=== PATIENT | male | born 1955 | race Caucasian/White ===

== ENCOUNTER 2020-06-01 | Observation (INO) | payer SELFPAY ==
[2020-05-31 21:27] LABS: HEMATOCRIT 45.6 % (39.0-50.0); IMMATURE GRANULOCYTES 0.8 % (0.0-5.0); MEAN CELL VOLUME 87.9 fL CALC (80.0-100.0); MEAN CORPUSCULAR HGB 30.8 pG CALC (26.0-32.0); MEAN CORPUSCULAR HGB CONC 35.1 g/dL CAL (32.0-36.0); NEUT# 9.79 thou/uL (1.82-7.42); RED BLOOD COUNT 5.19 mill/uL (4.70-6.10); RED CELL DISTRI WIDTH 13.4 % (11.5-15.5)
[2020-05-31 21:43] LABS: ALBUMIN 4.8 g/dL (3.2-5.0); ALKALINE PHOSPHATASE 77 u/l (38-126); AMYLASE 85 u/l (30-110); ANION GAP 15 (6-22 (CALC)); BILIRUBIN, TOTAL 0.7 mg/dL (0.0-1.4); BUN 12 mg/dL (8-23); BUN/CREATININE RATIO 16 (12-20 (CALC)); CARBON DIOXIDE 25 mmol/l (22-30); CHLORIDE 98 mmol/l (95-108); CREATININE 0.8 mg/dL (0.7-1.3); ETHYL ALCOHOL 50 mg/dl (0-30); GFR > 60 ML/MIN (>=60 (CALC)); GFR FOR AFR.AMER. > 60 ML/MIN (>=60 (CALC)); LIPASE 52 u/l (23-300); POTASSIUM 3.9 mmol/l (3.5-5.1); SGOT/AST 33 u/l (19-48); SODIUM 134 mmol/l (137-146); TOTAL PROTEIN 7.8 g/dL (6.3-8.2)
[2020-05-31 21:47] LABS: ACT PARTIAL THROMBO TIME 18.5 SECONDS (20.0-32.5); PROTHROMBIN TIME 10.4 SECONDS (9.0-12.5)
[2020-05-31 21:50] LABS: D-DIMER 0.17 mg/L (0.19-0.60)
[2020-05-31 21:54] LABS: MYOGLOBIN 189 ng/mL (0 - 121)
[2020-05-31 22:12] LABS: TSH, 3RD GENERATION 1.45 uIU/mL (0.47 - 4.68)
[2020-05-31 23:42] LABS: URINE BILIRUBIN - DIPSTICK NEGATIVE (NEGATIVE); URINE COLOR YELLOW; URINE GLUCOSE - DIPSTICK NEGATIVE (NEGATIVE); URINE KETONE 15 mg/dL (NEGATIVE); URINE LEUK ESTERASE NEGATIVE (NEGATIVE); URINE PROTEIN - DIPSTICK NEGATIVE (NEG-TRACE); URINE SPECIFIC GRAVITY 1.025; URINE UROBILINOGEN - DIPSTICK 0.2 E.U./dL (0.2)
[2020-05-31 23:44] LABS: URINE BLOOD DIPSTICK NEGATIVE (NEGATIVE); URINE NITRITE - DIPSTICK NEGATIVE (Negative)
[2020-06-01] VITALS (11 sets, daily range): BP systolic 117–158; BP diastolic 72–98
[~2020-06-01] MED LIST: BP MED PO; LEVOTHYROXIN150 MC1 PO
== END 2020-06-01 10:51 | disposition short-term general hospital (02) | DRG 282 ==
PROVIDERS: Family Medicine; ADMIT Internal Medicine
DX: I21.4 Non-ST elevation (NSTEMI) myocardial infarction (principal); R00.1 Bradycardia, unspecified; I10 Essential (primary) hypertension; E89.0 Postprocedural hypothyroidism; T46.5X6A Underdosing of other antihypertensive drugs, initial encounter; Z91.128 Patient's intentional underdosing of medication regimen for other reason; Z87.891 Personal history of nicotine dependence; Z72.89 Other problems related to lifestyle; Z20.822 Contact with and (suspected) exposure to COVID-19
CPT/HCPCS: G0378; J1650; J2060

== ENCOUNTER 2020-11-22 11:05 | Observation (INO) | payer BC ==
[~2020-11-22] VITALS: Ht 175.3 cm; Wt 97.0 kg
--- NOTE | 2020-11-22 11:05 | NUR ---
PATIENT TO ROOM VIA WHEELCHAIR AND PHYSICIAN NOTIFIED OF PATIENT STATUS
[2020-11-22 12:01] LABS: HEMATOCRIT 46.2 % (39.0-50.0); HEMOGLOBIN 15.9 g/dl (14.0-18.0); IMMATURE GRANULOCYTES 0.7 % (0.0-5.0); MEAN CELL VOLUME 89.4 fL CALC (80.0-100.0); MEAN CORPUSCULAR HGB 30.8 pG CALC (26.0-32.0); MEAN CORPUSCULAR HGB CONC 34.4 g/dL CAL (32.0-36.0); NEUT# 4.03 thou/uL (1.82-7.42); RED BLOOD COUNT 5.17 mill/uL (4.70-6.10); RED CELL DISTRI WIDTH 13.3 % (11.5-15.5)
[2020-11-22 12:09] LABS: ANION GAP 13 (6-22 (CALC)); BUN 11 mg/dL (8-23); BUN/CREATININE RATIO 15 (12-20 (CALC)); CARBON DIOXIDE 28 mmol/l (22-30); CHLORIDE 102 mmol/l (95-108); CREATININE 0.7 mg/dL (0.7-1.3); GFR > 60 ML/MIN (>=60 (CALC)); GFR FOR AFR.AMER. > 60 ML/MIN (>=60 (CALC)); POTASSIUM 4.2 mmol/l (3.5-5.1); SODIUM 138 mmol/l (137-146)
--- NOTE | 2020-11-22 12:18 | NUR ---
PATIENT LYING IN BED WITH SUPPORT PERSON AT BEDSIDE
[2020-11-22] MEDS ORDERED: LIPITOR80 M1 PO (12:48)
[2020-11-22] MEDS ORDERED: LISINOPRIL2.5 MG PO (12:48)
[2020-11-22] MEDS ORDERED: CLOPIDOGREL75 MG PO (12:48)
[2020-11-22] MEDS ORDERED: METOPROL TAR25 MG PO (12:48)
[2020-11-22] MEDS ORDERED: EUTHYROX150 MCG PO (12:49)
--- NOTE | 2020-11-22 12:59 | NUR ---
PATIENT SITTING UPRIGHT IN BED IN NO ACUTE DISTRESS WITH SUPPORT PERSON AT BEDSIDE. DENIES NEEDS AT THIS TIME
--- NOTE | 2020-11-22 13:05 | NUR ---
PATIENT HAD PAIN 9/[address] FERNANDEZ GAVE VERBAL ORDER 0.4 MG NITRO, SL.
--- NOTE | 2020-11-22 14:00 | NUR ---
PATIENT RESTING IN BED IN NO ACUTE DISTRESS.DENIES NEEDS AT THIS TIME
--- NOTE | 2020-11-22 15:05 | NUR ---
PATIENT C/O INTERMITTENT CHEST PAIN. MD NOTIFIED. NITROGLYCERIN 0.4 MG ADMINISTERED.
--- NOTE | 2020-11-22 16:33 | NUR ---
RECIEVED REPORT FROM ER NURSE.
--- NOTE | 2020-11-22 16:34 | NUR ---
PATIENT RESTING IN BED. REPORT CALLED TO AAYUSH. NURSE VERABLIZED UNDERSTANDING OF HAND OFF REPORT.
--- NOTE | 2020-11-22 17:21 | NUR ---
PT ARRIVED TO [facility] ROOM 261 VIA PORTABLE ACCOMPAINED BY ER STAFF. -PT IS A/O X3. ASSESSMENT AND VITALS COMPLETED. BP 142/74, HR 66, O2 98% ON ROOM AIR. RESPIRATIONS ARE EVEN AND UNLABORED WITH NO DISTRESSS NOTED. LUNG SOUNDS ARE CLEAR. HEART RHYTHM NORMAL WITH TELE IN PLACE, SR PER ER MONITORING.([id number]) #20G RAC FLUSHED, SITE APPEARS HEALTHY AND PATENT. SKIN INTACT. PULSES STRONG. PT COMPLAINS OF INTERMITTENT LEFT CHEST/STERNUM STABBING PAIN. MORPHINE TO BE ADMINISTERED. PT ORIENTED TO ROOM AND CALL SYSTEM.NKDA NOTED, ALLERGY BAND AND FALL RISK BAND APPLIED. ALL SAFETY PRECAUTIONS ARE IN PLACE WITH CALL LIGHT IN REACH. WILL CONTINUE TO MONITOR.
[2020-11-22 17:30] VITALS: BP 142/74
--- NOTE | 2020-11-22 17:50 | NUR ---
MORPHINE ADMNISTERED FOR 10/10 LEFT CHEST PAIN. PT OLERATED WELL.
--- NOTE | 2020-11-22 18:23 | NUR ---
REASSESSMENT OF PAIN AFTER ADMINISTRATION OF MORPHINE. PT STATES PAIN STILL COMES AND GOES, RATE 7/.
[2020-11-22 19:25] VITALS: BP 124/70
--- NOTE | 2020-11-22 22:36 | NUR ---
PHYSICAL ASSESMENT COMPLETE. PT CURRENTLY DENIES PAIN OR DISCOMFORT. SCHEDULED MEDICATIONS AND PRN MEDICATION ADMINISTERED, SEE E-MAR. PT C/O OF CHEST PAIN/ PRESSURE. WILL CONTINUE TO CLOSELY MONITOR. CARE REVIEWED, PT DENIES QUESTIONS, VERBALIZES UNDERSTANDING. ITEMS WITHIN REACH, BED LOCKED IN LOW POSITION W/ BEDRAILS UP X2. CALL LEOS WITHIN REACH, AGREES TO CALL PRN.
[2020-11-23] VITALS: BP 149/94
--- NOTE | 2020-11-23 | NUR ---
PT LAYING IN BED WITH EYES CLOSED, APPEARS TO BE SLEEPING, APPEARS COMFORTABLE AND IN NO DISTRESS. RESPIRATIONS REGULAR AND UNLABORED. ITEMS REMAIN WITHIN REACH, CALL LEOS REMAINS WITHIN REACH. BED REMAINS LOCKED AND IN LOW POSITION WITH BEDRAILS UP X2. WILL CONTINUE TO MONITOR.
[2020-11-23 04:00] VITALS: BP 125/81
--- NOTE | 2020-11-23 04:38 | NUR ---
PT RESTING IN BED, NO SIGNS OF DISTRESS NOTED, RESP EVEN AND UNLABORED. PT VOICES NO NEEDS OR COMPLAINTS AT THIS TIME. CALL LIGHT IN REACH, CONTINUE TO MONITOR.
[2020-11-23 06:17] LABS: HEMATOCRIT 44.4 % (39.0-50.0); MEAN CELL VOLUME 90.2 fL CALC (80.0-100.0); MEAN CORPUSCULAR HGB 30.5 pG CALC (26.0-32.0); MEAN CORPUSCULAR HGB CONC 33.8 g/dL CAL (32.0-36.0); RED BLOOD COUNT 4.92 mill/uL (4.70-6.10); RED CELL DISTRI WIDTH 13.6 % (11.5-15.5)
[2020-11-23 06:36] LABS: ANION GAP 11 (6-22 (CALC)); BUN 13 mg/dL (8-23); BUN/CREATININE RATIO 17 (12-20 (CALC)); CALCULATED LDLCHOLESTEROL 61 mg/dL (62-129 (CALC)); CARBON DIOXIDE 28 mmol/l (22-30); CHLORIDE 106 mmol/l (95-108); CHOLESTEROL HDL RATIO 4.6 (<4.4 (CALC)); CREATININE 0.8 mg/dL (0.7-1.3); GFR > 60 ML/MIN (>=60 (CALC)); GFR FOR AFR.AMER. > 60 ML/MIN (>=60 (CALC)); HDL CHOLESTEROL 26 mg/dL (>=40); POTASSIUM 4.5 mmol/l (3.5-5.1); SODIUM 139 mmol/l (137-146); TOTAL CHOLESTEROL 121 mg/dl (0-199); TOTAL TRIGLYCERIDES 166 mg/dl (30-149); VLDL CHOLESTROL 33 mg/dl (4-45 (CALC))
--- NOTE | 2020-11-23 07:00 | NUR ---
RECIEVED REPORT FROM NIKOS SOMERS
[2020-11-23 07:43] VITALS: BP 147/97
--- NOTE | 2020-11-23 07:43 | NUR ---
PT RESTING IN SEMI FOWLERS POSITION. PT IS A/O X3. ASSESSMENT AND VTALS COMPLETED. BP 147/97, HR 72, O22 97% ON ROOM AIR. RESPIRATIONS ARE EVEN AND UNLABORED WITH NO DISTRESS NOTED. LUNG SOUNDS ARE CLEAR. HEART RHYTHM NORMAL WITH TELE IN PLACE, SR PER ER MONITORING. BOWEL SOUNDS ARE ACTIVE. #20G RAC FLUSHED, SITE APPEARS HEALTHY AND PATENT. SKIN INTACT. PT STATES CHEST PAIN HAS SUBSIDED. PT STATES " WHEN IT DOES COME ITS NOT SO BAD." PT DOESNT REPORT ANY CURRENT PAIN. ALL SAFETY PRECAUTIONS ARE IN PLACE WITH CALL LIGHT IN REACH. WILL CONTINUE TO MONITOR.
[2020-11-23] MEDS ORDERED: PROTONIX40 M2 PO (09:30)
[2020-11-23] MEDS ORDERED: ASPIRIN81 MG PO (09:40)
[2020-11-23] MEDS ORDERED: NITROSTAT0.4 MG SL (09:40)
--- NOTE | 2020-11-23 09:40 | NUR ---
DR FERNANDEZ AND AGA. ANRP AT BEDSIDE
[2020-11-23 11:20] VITALS: BP 119/83
--- NOTE | 2020-11-23 11:50 | NUR ---
PT EDUCATED ON DC INSTRUCTIONS AND NEW MEDICAITON. PT VERBLAIZED UNDERSTANDING. IV REMOEVED WITH CATH STILL INTACT. TELE REMOVED, ER NOTIFIED. TRANSPORATTION CALLED. WILL CONTINUE TO MONITOR
--- NOTE | 2020-11-23 12:18 | NUR ---
Discharge instructions given. Patient verbalizes understanding of same. Discharged in stable condition via Wheelchair to Home with staff. All belongings sent with pt. PT DC HOME VIA WHEELCHAIR IN STABLE CONDITION ACCOMAPINED BY JAZMINE VICTOR WITH ALL DC INSTRCUTIONS AND PERSONAL BELONGINGS.
== END 2020-11-23 12:18 | disposition home or self-care (01) | DRG 313 ==
LOC: ED 11:05 → ED-I 12:35 → ED 12:53 → MS2 12:54
PROVIDERS: Family Medicine; ADMIT Hospitalist; ATTEND Hospitalist
DX: R07.9 Chest pain, unspecified (principal); F12.10 Cannabis abuse, uncomplicated; I10 Essential (primary) hypertension; I25.10 Atherosclerotic heart disease of native coronary artery without angina pectoris; E89.0 Postprocedural hypothyroidism; E78.00 Pure hypercholesterolemia, unspecified; I25.2 Old myocardial infarction; Z95.5 Presence of coronary angioplasty implant and graft; Z87.891 Personal history of nicotine dependence; Z79.02 Long term (current) use of antithrombotics/antiplatelets; Z79.82 Long term (current) use of aspirin; Z20.822 Contact with and (suspected) exposure to COVID-19
CPT/HCPCS: G0378; J1650

== ENCOUNTER 2021-12-12 11:14 | Emergency (ER) | payer BC ==
[~2021-12-12] VITALS: Ht 175.3 cm; Wt 95.5 kg
[2021-12-12] VITALS (9 sets, daily range): BP systolic 132–145; BP diastolic 87–105
[~2021-12-12 11:14] MED LIST changes: +ASPIRIN81 MG PO; +CLOPIDOGREL75 MG PO; +EUTHYROX150 MCG PO; +LIPITOR80 M1 PO; +LISINOPRIL2.5 MG PO; +METOPROL TAR25 MG PO; +NITROSTAT0.4 MG SL; +PROTONIX40 M2 PO
[2021-12-12] MEDS ORDERED: PREDNISONE10 MG PO (14:29)
== END 2021-12-12 14:43 | disposition home or self-care (01) | DRG 556 ==
LOC: ED 11:14
DX: M25.561 Pain in right knee (principal); I10 Essential (primary) hypertension; I25.2 Old myocardial infarction; Z95.5 Presence of coronary angioplasty implant and graft